=== PATIENT | female | born 1990 | race Two or more races ===

== ENCOUNTER 2022-01-02 17:43 | Emergency (ER) | payer BC, SELFPAY ==
--- NOTE | ~2022-01-02 | CT_ITS ---
Indication: Trauma EXAMINATION: CT of the brain, CT cervical spine. This CT examination was performed using dose optimization techniques as appropriate, variously including the following: *Automated exposure control *Adjustment of mA and/or kV according to patient size (this includes techniques or standardized protocols for targeted exams where dose is matched to indication/reason for exam; i.e. extremities or head) *Use of iterative reconstruction technique. Radiation dose is 625 and 308. Axial imaging with coronal and sagittal reformatted images. CT brain; There is no midline shift or mass effect or hemorrhage. There is a small area of mildly high attenuation in the pham matter from image 38 image 38 on series 3 in the left frontal parietal region however based on the coronal and sagittal imaging submitted is felt to be likely artifactual. Cannot completely exclude a small area of pham matter hemorrhage. The basal cisterns appear patent. The posterior fossa is grossly within normal limits. No extra-axial collection. There is no evidence for fracture on the bone windows. The ventricles and pham-white matter within normal limits. CT cervical spine; Negative for acute fracture or dislocation. CT/CT head/brain wo con IMPRESSION: As described mildly high attenuation associated with the parenchyma in the left frontal parietal region is felt to likely be artifactual. Small area of pham matter hemorrhage cannot be excluded. If further evaluation is warranted recommend MRI. Dr. Johnson neuroradiologist for [place] [facility] is consulted on this case. No acute fracture or dislocation of the cervical spine This critical result was discussed with Aida Silverman at 8:57 PM on 01/02/2022 and it was ascertained that the content and urgency of the report was understood at the time of direct communication.
--- NOTE | ~2022-01-02 | CT_ITS ---
Indication: Trauma EXAMINATION: CT of the brain, CT cervical spine. This CT examination was performed using dose optimization techniques as appropriate, variously including the following: *Automated exposure control *Adjustment of mA and/or kV according to patient size (this includes techniques or standardized protocols for targeted exams where dose is matched to indication/reason for exam; i.e. extremities or head) *Use of iterative reconstruction technique. Radiation dose is 625 and 308. Axial imaging with coronal and sagittal reformatted images. CT brain; There is no midline shift or mass effect or hemorrhage. There is a small area of mildly high attenuation in the pham matter from image 38 image 38 on series 3 in the left frontal parietal region however based on the coronal and sagittal imaging submitted is felt to be likely artifactual. Cannot completely exclude a small area of pham matter hemorrhage. The basal cisterns appear patent. The posterior fossa is grossly within normal limits. No extra-axial collection. There is no evidence for fracture on the bone windows. The ventricles and pham-white matter within normal limits. CT cervical spine; Negative for acute fracture or dislocation. CT/CT cervical spine wo con IMPRESSION: As described mildly high attenuation associated with the parenchyma in the left frontal parietal region is felt to likely be artifactual. Small area of pham matter hemorrhage cannot be excluded. If further evaluation is warranted recommend MRI. Dr. Johnson neuroradiologist for [place] [facility] is consulted on this case. No acute fracture or dislocation of the cervical spine This critical result was discussed with Aida Silverman at 8:57 PM on 01/02/2022 and it was ascertained that the content and urgency of the report was understood at the time of direct communication.
[2022-01-02 18:16] VITALS: BP 126/78; PULSE 87; RESP 18; TEMP 37.3; O2SAT 100; BMI 26.5
[2022-01-02 18:38] VITALS: BP 127/86; PULSE 84; RESP 16; TEMP 37.2; O2SAT 97
[2022-01-02 19:24] LABS: UPreg QC Valid YES; Urine Pregnancy NEGATIVE (NEGATIVE)
--- NOTE | 2022-01-02 20:53 | ED_ITS ---
HPI - Headache General Chief Complaint: Headache Stated Complaint: head injury Time Seen by Provider: 01/02/22 18:20 Source: patient Mode of arrival: ambulatory Limitations: no limitations History of Present Illness HPI Narrative: 31-year-old female presents for worsening headache after head trauma 2 weeks ago. Two weeks ago patient was in bed, thrashing around in the covers, fell out of bed onto a hardwood floor and hit her head. She went to [facility] [place] ER, no imaging was done, she had 2 sutures in her eyebrow. Patient returns today because she has had worsening headaches that come and go, she has a dull pain in the back of her head the right side worse than the left. Yesterday when she was just sitting on the couch she had a ?head payne? with headache and chills. She has also noticed some nasal discharge. States her neck is not stiff but it is sore. She was nauseous yesterday. No visual disturbance, no gait disturbance. States the headaches that she gets come out of no where, and are not severe but are 3/10 headaches and feel ?weird? Related Data Allergies Allergy/AdvReac Type Severity Reaction Status Date / Time cephalexin [From Keflex] Allergy Rash Verified 01/02/22 18:20 Review of Systems Constitutional: Constitutional: Denies body ache(s), Reports chills, Reports fatigue, Denies fever(s), Denies frequent falls, Reports headache(s), Denies malaise and Denies weakness Eyes: Eyes: Denies diplopia and Denies loss of vision ENT: Reports Normal hearing present, Denies vertigo, Denies dizziness, Denies otalgia, Reports headache(s), Denies mouth pain, Denies disequilibrium, Denies post nasal drip, Denies sinus pain, Denies sinus pressure, Denies sore throat and Denies throat swelling Cardiovascular: Cardiovascular: Denies chest pain, Denies syncope, Denies leg edema, Denies lightheadedness, Denies Loss of Consciousness, Denies palpitations and Denies dyspnea Respiratory: Respiratory: Denies chest congestion, Denies cough and Denies dyspnea Gastrointestinal: Gastrointestinal: Denies abdominal pain, Denies hematochezia, Denies constipation, Denies diarrhea, Reports nausea and Denies vomiting Musculoskeletal: Musculoskeletal: Reports no additional musculoskeletal complaints, Denies numbness and Denies tingling Neurologic: Reports Normal hearing present, Denies Neuro-related abnormal movements, Denies Abnormal speech present, Denies burning sensations, Denies confusion, Denies vertigo, Denies dizziness, Denies syncope, Denies frequent falls, Reports headache(s), Denies lack of coordination, Denies focal weakness, Denies loss of vision, Denies memory loss, Denies numbness, Denies Other visual disturbances, Denies radicular pain, Denies seizure-like activity, Denies Sensory deficit (Neuro), Denies tingling, Denies paresthesias, Denies disequilibrium and Denies weakness Psychiatric: Psychiatric: Denies anxiety, Denies confusion, Denies depression and Denies memory loss Endocrine: Endocrine: Reports fatigue and Denies palpitations Allergic/Immunologic: Allergic/Immunologic: Denies throat swelling PMFSH Past Medical History Medical History Asthma Social History Social History Advance Directives: No Advance Directives Information Provided: Yes Physical Exam Vital Signs: Vital Signs: Last Vital Signs Temp 99 F 01/02/22 18:38 Pulse 84 01/02/22 18:38 Resp 16 01/02/22 18:38 BP 127/86 01/02/22 18:38 Pulse Ox 97 01/02/22 18:38 BMI result Body Mass Index 26.5 Const: General: No confusion Nutritional Appearance: well nourished Orientation/consciousness: patient oriented x3 and No confusion Limitations: no limitations HEENT: Head: Yes normal to inspection, Yes normocephalic and Yes atraumatic Ears: hearing grossly normal bilaterally, external ears normal, TM's normal bilaterally and EAC's normal General nose exam: Normal external nose present Face and sinus: Yes normal facial exam and Yes sinuses nontender Mouth: Normal oral and palatal mucosa present Throat: Yes posterior oropharynx normal Eyes: Conjunctivae: conjunctivae normal Pupils: Equal, round and reactive pupils present EOM: EOMs intact bilaterally and No Nystagmus present Neck: Neck: Yes full ROM, Yes no lymphadenopathy and Yes supple Resp: Effort & Inspection: normal respiratory effort and able to speak in complete sentences Auscultation: clear to auscultation bilaterally, no crackles, no rales, no rhonchi and no wheezes Cardio: Rate: regular rate Rhythm: regular rhythm Heart sounds: S1 normal heart sound present and S2 normal heart sound present GI: Inspection: Yes normal to inspection Palpation (GI): Soft to palpation, nontender, no guarding and not rigid Percussion: Yes normal to percussion Auscultation: normal bowel sounds Skin: General skin exam: no rashes or lesions noted Neuro: General: patient oriented x3, gait normal, tone normal and No confusion Cranial nerves: Yes CN's II-XII intact bilaterally, Yes Facial sensation intact/muscles of mastication intact, Yes Equal, round and reactive pupils present, Yes Normal accommodation reflex present, Yes Bilaterally intact EOM present, Yes Nystagmus not present, Yes Normal facial strength present, Yes Midline tongue present, Yes Normal hearing present, Yes Ability to bilaterally rotate head present, Yes Ability to bilaterally elevate shoulders present and No Nystagmus present Cognition (Neuro): normal cognition Speech: No Abnormal speech present Gait exam (Neuro): Normal gait present Motor exam (neuro): 5/5 motor strength present throughout and Pronator motor function not present Sensory Exam: No Sensory deficit (Neuro) Deep tendon reflexes (DTR's): Right brachioradialis reflex intensity grade: 1+, Left brachioradialis reflex intensity grade: 1+, Right patellar reflex intensity grade: 2+ and Left patellar reflex intensity grade: 2+ Coordination: [id number] test normal, [id number] test normal and tandem gait normal Romberg Test: Negative Pupils: Normal pupillary reactivity/response: bilateral Extrem: General: Yes normal to inspection and Yes full ROM Psych: Appearance: grossly normal Affect: normal affect Attitude: cooperative Thought process: Normal thought process present Course Course Course Narrative: 31-year-old female presents for worsening headaches after having a head trauma 2 weeks ago. On exam, patient has stable vitals, and is neurologically intact, no focal neuro deficits. She is not anticoagulated Getting head CT, neck CT, U Reevaluation(s) Reevaluation #1: CT/CT head/brain wo con IMPRESSION: ? As described mildly high attenuation associated with the parenchyma in the left frontal parietal region is felt to likely be artifactual. Small area of pham matter hemorrhage cannot be excluded. If further evaluation is warranted recommend MRI. Dr. Johnson neuroradiologist for [facility] is consulted on this case. ? No acute fracture or dislocation of the cervical spine This critical result was discussed with Aida Silverman at 8:57 PM on 01/02/2022 and it was ascertained that the content and urgency of the report was understood at the time of direct communication. [facility] called, spoke to radiologist Marc Vazquez. Stated that neck CT was negative, but head CT showed left frontal parietal region tiny cortical bleed. Neurologist felt it could be artifact, Dr. Vazquez consulted with his neurologist, but Dr. Vazquez cannot exclude a small bleed in the cortical hpam matter. Patient needs MRI. Spoke to [facility] [place] [facility], Dr. Gao. Patient will be transferred by ambulance to [facility] [place] an ER to ER transfer for trauma consult MDM - Headache Lab Data Labs: Lab Results 01/02/22 Range/Units 19:14 Urine Test NEGATIVE (NEGATIVE) Discharge Plan Discharge Clinical Impression: Cortical hemorrhage Patient Disposition: [facility] Transfer Details: transfer to [facility] [place], Dr Gao trauma surgeon will consult in ER
[2022-01-02 21:22] VITALS: PULSE 81; RESP 16; TEMP 37.2; O2SAT 98
[2022-01-02 21:26] LABS: COVID-19 Test Negative (Negative)
--- NOTE | 2022-01-02 21:26 | PC.NURSE ---
pt reports intermittent dull headache pain over the past 2 weeks and increased fatigue. able to move all 4 extremities on command, no facial aysmmetry
--- NOTE | 2022-01-02 21:55 | PC.NURSE ---
report called to [facility] ER, spoke to MYKEL Gonzalez for handoff
--- NOTE | 2022-01-02 21:58 | PC.NURSE ---
This [place]/[facility] call [facility] [place] line at 2100 per Aida THOMAS. Accepted Pt at 2130,Called [facility] for a Stat [place] at 2136.
== END 2022-01-02 21:56 | disposition short-term general hospital (02) ==
PROVIDERS: Physician Assistant; Emergency Provider Emergency Medicine Emergency Medical Services; PCP Internal Medicine
DX: S06.369A Traumatic hemorrhage of cerebrum, unspecified, with loss of consciousness of unspecified duration, initial encounter (principal); G44.309 Post-traumatic headache, unspecified, not intractable; M54.2 Cervicalgia; M43.6 Torticollis; Z20.822 Contact with and (suspected) exposure to COVID-19; W06.XXXA Fall from bed, initial encounter; Y93.89 Activity, other specified; Y92.013 Bedroom of single-family (private) house as the place of occurrence of the external cause; Y99.8 Other external cause status
CPT/HCPCS: 70450; 72125; 81025; 87635; 99284; 99285